=== PATIENT | female | born 1970 | race Caucasian/White ===

== ENCOUNTER 2017-08-27 20:09 | Emergency (ER) | payer SELFPAY ==
--- NOTE | 2017-08-27 21:34 | RADIOLOGY REPORT (SQ) ---
EXAM DESCRIPTION: ELBOW RIGHT OVER 2 VIEWS COMPLETED DATE/TIME: 08/27/2017 9:20 pm REASON FOR STUDY: fall COMPARISON: None. NUMBER OF VIEWS: Four views. TECHNIQUE: AP, lateral, and both oblique radiographic images acquired of the right elbow. LIMITATIONS: None. FINDINGS: MINERALIZATION: Normal. BONES: No acute fracture or dislocation. No worrisome bone lesions. JOINT: No effusion. SOFT TISSUES: No significant soft tissue swelling. No foreign body. OTHER: No other significant finding. IMPRESSION: NO RADIOGRAPHIC EVIDENCE OF ACUTE INJURY. TECHNICAL DOCUMENTATION: JOB ID: [id number] [place]-72 2010 [employer]- All Rights Reserved
--- NOTE | 2017-08-27 21:37 | RADIOLOGY REPORT (SQ) ---
EXAM DESCRIPTION: HAND RIGHT 3 VIEWS COMPLETED DATE/TIME: 08/27/2017 9:20 pm REASON FOR STUDY: fall COMPARISON: None. EXAM PARAMETERS: NUMBER OF VIEWS: Three views. TECHNIQUE: AP, lateral and oblique radiographic images acquired of the right hand. LIMITATIONS: None. FINDINGS: MINERALIZATION: Normal. BONES: No acute fracture or dislocation. No worrisome bone lesions. JOINTS: No effusions. SOFT TISSUES: No soft tissue swelling. No foreign body. OTHER: No other significant finding. IMPRESSION: NO RADIOGRAPHIC EVIDENCE OF ACUTE INJURY. TECHNICAL DOCUMENTATION: JOB ID: [id number] [place]-72 2010 [employer]- All Rights Reserved
[2017-08-27] MEDS ORDERED: HYDROCODONE/ACETAMINOPHEN 5-325 MG 6 TAB/DSPK PO PRN (22:06)
--- NOTE | 2017-08-27 22:12 | ER Document Report ---
HPI - HPI Patient complains to provider of: Right hand injury Pain Level: 3 Context: Patient is a 47-year-old female that comes emergency department for chief complaint of injury to her right hand and wrist. She states that she slipped in mud and fell, landing on her hand/wrist/forearm on the ground. She denies head injury. This happened earlier today. She reports swelling over her hand and wrist with bruising. She is not on a blood thinner. She denies any daily medications. She denies any other injuries or complaints. - REPRODUCTIVE LMP: now - MUSCULOSKELETAL Musculoskeletal: REPORTS: Extremity pain Past Medical History - General Information source: Patient - Social History Smoking Status: Never Smoker Chew tobacco use (# tins/day): No Frequency of alcohol use: None Drug Abuse: None Lives with: Family Family History: Reviewed & Not Pertinent Patient has suicidal ideation: No Patient has homicidal ideation: No - Medical History Medical History: Negative Renal/ Medical History: Denies: Hx Peritoneal Dialysis Surgical Hx: Negative - Immunizations Immunizations up to date: Yes Hx Diphtheria, Pertussis, Tetanus Vaccination: Yes Vertical Provider Document - CONSTITUTIONAL General Appearance: WD/WN, No Apparent Distress - INFECTION CONTROL TRAVEL OUTSIDE OF THE [place] IN LAST 30 DAYS: No - HEENT HEENT: Atraumatic, Normocephalic - NECK Neck: Normal Inspection - RESPIRATORY Respiratory: Breath Sounds Normal, No Respiratory Distress O2 Sat by Pulse Oximetry: 98 - CARDIOVASCULAR Cardiovascular: Regular Rate, Regular Rhythm - GI/ABDOMEN Gastrointestinal: Abdomen Soft, Abdomen Non-Tender - BACK Back: Normal Inspection - MUSCULOSKELETAL/EXTREMETIES Musculoskeletal/Extremeties: Tender - There is soft tissue swelling and bruising over the right hand, slightly more so over the fifth MCP area extending towards the wrist, also has significant snuffbox tenderness, normal capillary refill and sensation, unremarkable hand exam otherwise, normal elbow, shoulder, neck exam. Course - Re-evaluation Re-evalutation: No obvious abnormality on x-ray per my read or radiologist. However on examination she has bruising, pain, soft tissue swelling, and significant snuffbox tenderness. As result patient will be placed in a thumb spica, provided with medication, referred to orthopedics. Discussed this with patient in detail. Patient states understanding and agreement. - Vital Signs Vital signs: Temp Pulse Resp BP Pulse Ox 97.9 F 100 18 129/64 H 98 08/27/17 20:36 08/27/17 20:36 08/27/17 20:36 08/27/17 20:36 08/27/17 20:36 - Diagnostic Test Radiology reviewed: Image reviewed, Reports reviewed Procedures - Immobilization right wrist Pre-Proc Neuro Vasc Exam: Normal Immobilizer type: Thumb spica Performed by: PCT Post-Proc Neuro Vasc Exam: Normal Alignment checked and good: Yes Discharge - Discharge Clinical Impression: Right wrist pain Injury of right hand Qualifiers: Encounter type: initial encounter Qualified Code(s): S69.91XA - Unspecified injury of right wrist, hand and finger(s), initial encounter Condition: Stable Disposition: HOME, SELF-CARE Additional Instructions: Your examination is concerning for possible scaphoid fracture along with the soft tissue swelling. No obvious abnormalities are seen on the x-rays. I recommend you wear the splint, call the orthopedic referral tomorrow and set up your follow-up for additional management. Return for any concerning symptoms including severe swelling or pain. Prescriptions: Hydrocodone/Acetaminophen [[place] 5-325 mg Tablet] 1 - 2 tab PO ASDIR #10 tablet Referrals: LAURA STREETER DO [ACTIVE STAFF] - Follow up tomorrow
[2017-08-27 22:24] VITALS: BP 124/77
== END 2017-08-27 22:27 | disposition home or self-care (01) ==
LOC: ER 20:09
DX: S60.221A Contusion of right hand, initial encounter (principal); M25.531 Pain in right wrist; W01.0XXA Fall on same level from slipping, tripping and stumbling without subsequent striking against object, initial encounter
CPT/HCPCS: 99283

== ENCOUNTER 2020-08-26 20:59 | Emergency (ER) | payer SELFPAY ==
[2020-08-26 21:10] VITALS: BP 147/79
--- NOTE | 2020-08-26 21:32 | ER Document Report ---
ED Skin Rash/Insect Bite/Abscs - General Stated Complaint: POSSIBLE BUG BITE/RIGHT ARM Time Seen by Provider: 08/26/20 21:14 Mode of Arrival: Ambulatory Information source: Patient Notes: Patient is a 48-year-old female comes emergency room complaining of having infection on her right arm. Patient states that she thinks 3 days ago she might of bumped the end of the tac and yesterday started to swell up and got red. She states is much better today because has been applying antibiotic ointment to it but she thinks she might need an oral antibiotic. Patient denies any fever no nausea or vomiting. She has full range of motion of her arm she says and she is here really just wanting an antibiotic. Patient does state that she has allergies to Bactrim and to penicillins. She denies any other medical problems and currently takes no medications. TRAVEL OUTSIDE OF THE [place] IN LAST 30 DAYS: No - HPI Patient complains to provider of: Tender/swollen area Onset: Other - 3 days Onset/Duration: Gradual Quality of pain: Achy Severity: Moderate Pain Level: 3 Skin Character: Tenderness, Thickening, Warm Skin Temperature: Warm Quality of rash: Itchy, Painful Identify cause: Yes - Possibly a puncture wound from tac Exacerbated by: Denies Relieved by: Denies Similar symptoms previously: No Recently seen / treated by doctor: No - Related Data Allergies/Adverse Reactions: amoxicillin Allergy (Verified 08/27/17 20:13) Past Medical History - General Information source: Patient - Social History Smoking Status: Never Smoker Cigarette use (# per day): No Chew tobacco use (# tins/day): No Smoking Education Provided: No Frequency of alcohol use: None Drug Abuse: None Lives with: Alone Family History: Reviewed & Not Pertinent Renal/ Medical History: Denies: Hx Peritoneal Dialysis - Immunizations Immunizations up to date: Yes Hx Diphtheria, Pertussis, Tetanus Vaccination: Yes Review of Systems - Review of Systems Constitutional: No symptoms reported EENT: No symptoms reported Cardiovascular: No symptoms reported Respiratory: No symptoms reported Gastrointestinal: No symptoms reported Genitourinary: No symptoms reported Female Genitourinary: No symptoms reported Musculoskeletal: No symptoms reported Skin: See HPI, Rash, Other - Cellulitis Hematologic/Lymphatic: No symptoms reported Neurological/Psychological: No symptoms reported -: Yes All other systems reviewed and negative Physical Exam - Vital signs Vitals: Temp Pulse Resp BP Pulse Ox 98.3 F 101 H 16 147/79 H 98 08/26/20 21:07 08/26/20 21:07 08/26/20 21:07 08/26/20 21:07 08/26/20 21:07 Interpretation: Hypertensive, Tachycardic - Notes Notes: PHYSICAL EXAMINATION: GENERAL: Well-appearing, well-nourished and in no acute distress. HEAD: Atraumatic, normocephalic. EYES: Pupils equal round and reactive to light, extraocular movements intact, conjunctiva are normal. LUNGS: Breath sounds clear to auscultation bilaterally and equal. No wheezes rales or rhonchi. HEART: Regular rate and rhythm without murmurs Musculoskeletal: Examination patient's area concern is her right arm primarily elbow area. Patient has approximately a 8 cm long by 5 cm wide area of erythema going across the elbow. Patient has full range of motion without any pain or discomfort. Palpation the area does show that is mildly warm to touch as compared to the left side. Patient displays good cap refill in the nailbeds of the hands of the right side. Further palpation of the area does not show any induration is not impressive for an abscess. There is no fluctuance noted. Present infection superficial cellulitis. NEUROLOGICAL: Normal speech, normal gait. Normal sensory, motor exams PSYCH: Normal mood, normal affect. SKIN: Warm, Dry, normal turgor, no rashes or lesions noted. Course - Re-evaluation Re-evalutation: 08/26/20 21:31 Patient is very hyper anxiety type of person. She forewarned me on her first minute in the triage room that she does not like doctors she gets highly anxious and she does not take any medications because she is worried about side effects. Patient form is she cannot take any sulfa drug and/or a penicillin-based medications because of reaction she has had. She states she reads all of the side effect profiles and she does not want to go blind and she does not want to have any shortness of breath or swelling. I have informed patient that she needs not to read all of the side effects because she will end up with all the side effects. Given that this infection appears to be fairly commonplace cellulitis of the skin I will place her on some doxycycline and have warned her that this is over a joint space but I do not believe that it is this time is involved it is just more superficial to take all of the antibiotics until completion. I have also instructed her that should it get worse or she spike a fever or she is unable to move her arm she is to return to ER at once for reevaluation. She and her son both understood and the seriousness of this problem. She is requesting we do no further work-up except try the oral antibiotics at this time which I think is a reasonable request this presentation. - Vital Signs Vital signs: Temp Pulse Resp BP Pulse Ox 98.3 F 101 H 16 147/79 H 98 08/26/20 21:07 08/26/20 21:07 08/26/20 21:07 08/26/20 21:07 08/26/20 21:07 - Laboratory Results Critical Laboratory Results Reviewed: No Critical Results - Radiology Results Critical Radiology Results Reviewed: No Critical Results Discharge - Discharge Clinical Impression: Cellulitis of right arm Condition: Stable Disposition: HOME, SELF-CARE Instructions: Cellulitis (OM), MRSA Cellulitis ([facility]) Additional Instructions: Home and rest. As we discussed you can use warm moist compresses or soak the elbow and some warm soapy water. You can take ibuprofen or Tylenol for any aches and pains. As we discussed should you have increasing or spreading of this area or increasing pain or edema or you spike a fever return to ER at once for reevaluation. Prescriptions: Fluconazole [Diflucan] 150 mg PO ONCE #1 tablet Doxycycline Hyclate [Vibramycin] 100 mg PO BID #20 capsule Forms: Elevated Blood Pressure Referrals: NORBERT BILLINGS MD [HONORARY] - Follow up as needed
[2020-08-26] MEDS ORDERED: DOXYCYCLINE HYCLATE 100 MG TABLET PO ONE (21:34)
== END 2020-08-26 21:49 | disposition home or self-care (01) ==
LOC: ER 20:59
DX: L03.113 Cellulitis of right upper limb (principal); Z88.1 Allergy status to other antibiotic agents; Z88.0 Allergy status to penicillin
CPT/HCPCS: 99283